=== PATIENT | male | born 1995 | race Caucasian/White ===

== ENCOUNTER 2022-01-05 12:48 | Emergency (ER) | payer SELFPAY ==
[~2022-01-05] VITALS: Ht 177.8 cm; Wt 81.6 kg
--- NOTE | 2022-01-05 12:53 | NUR ---
SILVANA 89 AND [employer] FROM HOME AFTER HAVING A VERBAL ARGUMENT WITH HIS , PER HIS HE ROOK 3 TABS OF ADERALL. PT STATED HE WAS SUICIDAL, PT DENIES ANY SUICIDAL IDEATION UPON ARRIVAL. PT PLACED ON 5150 HOLD PER [employer]. VITALS ARE WITHIN NORMAL LIMITS. WARM BLKANET PROVIDED FOR COMFORT.
[2022-01-05 13:40] LABS: BASOPHILS % (AUTO) 0.4 % (0.0-2.0); EOSINOPHILS % (AUTO) 2.6 % (0.0-6.0); HEMATOCRIT 48 % (39-51); HEMOGLOBIN 15.9 g/dL (13.5-17.5); LYMPHOCYTES # (AUTO) 1.2 K/uL (0.8-4.8); LYMPHOCYTES % (AUTO) 19.9 % (20.0-44.0); MEAN CORPUSCULAR HGB CONC 34 g/dl (31.0-36.0); MEAN CORPUSCULAR VOLUME 89 fL (80-96); MONOCYTES # (AUTO) 0.6 K/uL (0.1-1.30); MONOCYTES % (AUTO) 9.9 % (2.0-12.0); NEUTROPHILS # (AUTO) 3.9 K/uL (1.8-8.9); NEUTROPHILS % (AUTO) 67.2 % (43.0-81.0); PLATELET COUNT (AUTO) 187 K/uL (150-450); RED BLOOD CELL COUNT(AUTO) 5.33 MIL/uL (4.5-6.0); WHITE BLOOD COUNT (AUTO) 5.8 K/uL (4.3-11.0)
[2022-01-05 13:54] LABS: CALCIUM, SERUM 9.1 mg/dL (8.5-10.1); CARBON DIOXIDE 28 mmol/L (21-32); CHLORIDE 105 mmol/L (98-107); GLUCOSE 95 mg/dL (74-106); POTASSIUM 3.5 mmol/L (3.5-5.1); SODIUM SERUM 141 mmol/L (136-145); UREA NITROGEN, BLOOD 8 mg/dL (7-18)
[2022-01-05 14:12] LABS: ALANINE AMINOTRANSFERASE 22 U/L (12-78); ALBUMIN 4.1 g/dL (3.4-5.0); ALCOHOL, BLOOD < 3 mg/dL (0-0); ALKALINE PHOSPHATASE 69 U/L (46-116); ASPARTATE AMINOTRANSFERASE 20 U/L (15-37); BILIRUBIN,DIRECT 0.3 mg/dL (0.0-0.2); BILIRUBIN,TOTAL 0.9 mg/dL (0.2-1.0); TOTAL PROTEIN, SERUM 7.1 g/dL (6.4-8.2)
[2022-01-05 14:13] LABS: ACETAMINOPHEN < 0 ug/ml (10-30)
--- NOTE | 2022-01-05 14:30 | NUR ---
URINAL PROVIDED AT BEDSIDE, PT STATED THAT HE WILL GIVE SAMPLE WHEN HE IS ABLE TO.
--- NOTE | 2022-01-05 15:37 | NUR ---
COVID TEST COLLECTED AND SENT
--- NOTE | 2022-01-05 15:45 | NUR ---
mother michelle christen [phone] german [phone]
--- NOTE | 2022-01-05 20:28 | NUR ---
GAEL- CRISIS TEAM AT BEDSIDE FOR EVAL.
--- NOTE | 2022-01-05 20:59 | NUR ---
PT NO LONGER ON [address] ALBERT AWARE.
--- NOTE | 2022-01-05 22:02 | NUR ---
Patient discharged to home in stable condition. Written and verbal after care instructions given. Patient verbalizes understanding of instruction.
[2022-01-05 22:03] VITALS: BP 123/68
== END 2022-01-05 22:04 | disposition home or self-care (01) ==
LOC: ER 12:55
DX: R45.851 Suicidal ideations (principal); Z20.822 Contact with and (suspected) exposure to COVID-19
CPT/HCPCS: 99285; 85025; 80048; 80076; 36415; 87426; 80143; 80320; C9803; G0480